=== PATIENT | female | born 1980 | race American Indian/Alaskan Native ===

== ENCOUNTER 2016-09-10 20:23 | Emergency (ER) | payer OTHER ==
[~2016-09-10 20:23] MED LIST: Clindamycin HCl 150 MG Cap PO ONE
[2016-09-10 20:29] VITALS: BP 154/93
[2016-09-10] MEDS ORDERED: cefTRIAXone 1 GM Vial IM ONE (21:18)
[2016-09-10] MEDS ORDERED: Take Home: Clindamycin HCl 150 MG Cap, 6 Cap Pack PO ONE (21:18)
--- NOTE | 2016-09-10 21:23 | EDM.PDOC ---
ED HPI GENERAL MEDICAL PROBLEM - General Chief Complaint: General Stated Complaint: foot infection Time Seen by Provider: 09/10/16 21:05 Source of Information: Reports: Patient History Limitations: Reports: No limitations - History of Present Illness INITIAL COMMENTS - FREE TEXT/NARRATIVE: Vivien is a 36 yo female who presents to the ER this evening with concerns of a wound to the bottom of her left foot involving the 2-4th toes. States she was seen in the [place] ER on the 08 of September d/t ulceration and drainage from her left foot. Admits she had been wearing knee high boots that were really tight on her toes. States she started to notice some break down of her skin. States at the ER they told her it was fungal and put her on a cream. Admits the pain has worsened and the wound has started draining as well. Denies any past history of MRSA that she knows of. States she tried soaking her foot in soap and water with no relief. 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 (see below) (anti-fungal cream) Left Feet Pain Score (Numeric/FACES): 5 - Related Data Allergies Allergy/AdvReac Type Severity Reaction Status Date / Time lisinopril Allergy Cough Verified 09/10/16 20:24 Home Meds: Home Meds Atenolol 50 mg PO BID 07/29/13 [History] Albuterol Sulfate [Proventil Hfa] 2 puff INH BID PRN 09/10/16 [History] Hydrochlorothiazide 50 mg PO DAILY 09/10/16 [History] Past Medical History HEENT History: Reports: Impaired vision Cardiovascular History: Reports: Hypertension Respiratory History: Reports: Asthma Genitourinary History: Reports: Other (see below) Other Genitourinary History: had renal failure during , resolved now 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: Psychiatric History: Reports: Anxiety Endocrine/Metabolic History: Reports: Obesity/BMI 30+ - Infectious Disease History Infectious Disease History: Reports: Chicken pox - Past Surgical History GI Surgical History: Reports: Appendectomy Female Surgical History: Reports: section Social & Family History - Family History Family Medical History: Noncontributory - Tobacco Use Smoking Status *Q: Current Some Day Smoker Years of Tobacco use: 4 Packs/Tins Daily: 0.2 Second Hand Smoke Exposure: Yes - Caffeine Use Caffeine Use: Reports: Coffee, Energy drinks, Soda - Alcohol Use Days Per Week of Alcohol Use: 1 Number of Drinks Per Day: 6 Total Drinks Per Week: 6 - Recreational Drug Use Recreational Drug Use: No - Living Situation & Occupation Living situation: Reports: with significant other Occupation: employed ED ROS GENERAL - Review of Systems Review Of Systems: ROS reveals no pertinent complaints other than HPI. Skin: Reports: erythema, wound, change in color ED EXAM, GENERAL - Physical Exam Exam: See Below Exam Limited By: No limitations General Appearance: alert, mild distress Peripheral Pulses: 2+: posterior tibial (L), posterior tibial (R), dorsalis pedis (L), dorsalis pedis (R) Extremities: no pedal edema, normal capillary refill, other (tenderness with movement of 1-4th digits, left foot. ) Psychiatric: normal affect, normal mood Skin Exam: Erythema, Wound/incision (purulent drainage from wound, no foul odor currently present, wound extends from interwebbing of 1-4th digits of left foot. ). No: Increased warmth Course - Vital Signs Last Recorded V/S: Last Vital Signs Temp 97.6 F 09/10/16 20:26 Pulse 81 09/10/16 20:26 Resp 16 09/10/16 20:26 BP 154/93 H 09/10/16 20:26 Pulse Ox 96 09/10/16 20:26 Departure - Departure Time of Disposition: 21:28 Disposition: Home, Self-Care 01 Condition: undetermined Clinical Impression: Infection of left foot Tinea pedis Qualifiers: Laterality: left Qualified Code(s): B35.3 - Tinea pedis Forms: ED Department Discharge Additional Instructions: 1) Clindamycin 300mg four times a day for 10 days 2) Diflucan 100mg daily for 7 days 3) Epsom salt soaks for left foot 4) Advise recheck this week with primary provider for reevaluation 5) Recommend physical therapy for possible wound debridement. 6) Recommend taking 600mg of ibuprofen with 500mg of Tylenol every 6 hours as needed for discomfort. 7) Follow up in ER if any further concerns 8) Recommend keeping foot clean and dry all other times of day besides foot soaks. Allow to air dry. *culture taken of wound and will call when report is back - Problem List & Annotations (1) Tinea pedis SNOMED Code(s): 8204335 Code(s): B35.3 - TINEA PEDIS Status: Acute Priority: High Current Visit : Yes Qualifiers: Laterality: left Qualified Code(s): B35.3 - Tinea pedis (2) Infection of left foot SNOMED Code(s): 470063715 Code(s): L08.9 - LOCAL INFECTION OF THE SKIN AND SUBCUTANEOUS TISSUE, UNSP Status: Acute Priority: High Current Visit: Yes - Problem List Review Problem List Initiated/Reviewed/Updated: Yes - Assessment/Plan Plan: Culture taken of wound. Will initiate Clindamycin therapy along with Diflucan. Recommend Epsom Salt soaks. Advise following up with primary provider tomorrow for reevaluation and possible referral to physical therapy for wound debridement. Tylenol and ibuprofen for discomfort.
[2016-09-10] MEDS ORDERED: Lidocaine 1% 20 ML MDV ONE (21:27)
[2016-09-10] MEDS: Lidocaine 1% 30 ML SDV INJECT ONE ×2 (21:36→21:39)
== END 2016-09-10 22:00 | disposition home or self-care (01) ==
LOC: CC.ED 20:23
DX: L08.9 Local infection of the skin and subcutaneous tissue, unspecified (principal); B35.3 Tinea pedis; I10 Essential (primary) hypertension; J45.909 Unspecified asthma, uncomplicated; F41.9 Anxiety disorder, unspecified; E66.9 Obesity, unspecified; Z90.49 Acquired absence of other specified parts of digestive tract; Z88.8 Allergy status to other drugs, medicaments and biological substances; Z79.899 Other long term (current) drug therapy; Z98.890 Other specified postprocedural states
CPT/HCPCS: 87070; 96372; 99283; A9270; J0696; 87077; 87186